=== PATIENT | female | born 1965 | race Caucasian/White ===

== ENCOUNTER → 2019-04-30 | Outpatient (REF) | payer OTHER, BC | LOC: M LAB REF 18:41 | PROVIDERS: ATTEND Dermatology | DX: D48.9 Neoplasm of uncertain behavior, unspecified (principal) ==

== ENCOUNTER → 2023-08-25 | Outpatient (REF) | payer BC | LOC: M SFHCDERM 16:26 | PROVIDERS: ATTEND Physician Assistant | DX: D48.9 Neoplasm of uncertain behavior, unspecified (principal); Z53.9 Procedure and treatment not carried out, unspecified reason ==